=== PATIENT | female | born 2000 | race Caucasian/White ===

== ENCOUNTER 2020-07-01 19:39 | Emergency (ER) | payer OTHER ==
[~2020-07-01] VITALS: Ht 167.6 cm; Wt 73.5 kg
[2020-07-01 20:03] VITALS: BP_SYST 141
[2020-07-01] MEDS ORDERED: LIDOCAINE 1% 10 MG/ML, 20 ML MDV INJ ONE (20:15)
[2020-07-01] MEDS ORDERED: DIPH-TET-PERTUS Vaccine 0.5 ML VIAL (ADACEL) I.M. ONE (20:15)
[2020-07-01] MEDS ORDERED: LIDOCAINE/EPI 1% 1:100000 20 ML VIAL INJ ONE (20:15)
[2020-07-01] MEDS ORDERED: HYDR-4272 PO (20:35)
[2020-07-01] MEDS ORDERED: CLIN300C11 PO (20:35)
[2020-07-01] MEDS ORDERED: ONDANSETRON 4 MG ODT TAB PO ONE (21:00)
[2020-07-01 21:08] VITALS: BP_SYST 125
== END 2020-07-01 21:08 | disposition home or self-care (01) ==
LOC: SED 19:39
DX: L05.91 Pilonidal cyst without abscess (principal)
CPT/HCPCS: 10080; 99283